=== PATIENT | male | born 1970 | race Caucasian/White ===

== ENCOUNTER → 2016-12-20 | Day surgery (SDC) | payer BC, OTHER ==
[2016-11-27 09:24] VITALS: Ht 175.3 cm; Wt 67.7 kg
[~2016-12-20] VITALS: Ht 175.3 cm; Wt 67.7 kg
[~2016-12-20] MED LIST: IOPAMIDOL INJ 61% 15 ML VIAL ONE; LIDOCAINE HCL 1% MPF 5 ML VIAL ONE; MULT-506 PO; OXYC1TAB3 PO; SODIUM CHLORIDE 0.9% INJ 10 ML VIAL ONE
--- NOTE | 2016-12-20 13:03 | History & Physical Bridge - [place] ---
H&P Re-Evaluation Bridge Note: I have examined the patient, reviewed the History & Physical and in the interval since the performance of the History & Physical I have noted the following changes of clinical significance: No changes noted
--- NOTE | 2016-12-20 13:35 | Discharge Instructions ---
Discharge Instructions Date of Service Dec 20, 2016. Visit Reason for Visit: Lumbar Radiculopathy Discharge Discharge Diagnosis / Problem: low back pain Discharge Goals Goal(s): Decrease discomfort, Improve function Activity Recommendations Activity Limitations: resume your previous activity Anesthesia . Post Anesthesia Instructions: If you have had General Anesthesia or IV Sedation: * Do not drive today. * Resume driving when surgeon permits. * Do not make important decisions or sign legal documents today. * Call surgeon for: 1. Temperature elevations greater than 101 degrees F. 2. Uncontrollable pain. 3. Excessive bleeding. 4. Persistent nausea and vomiting. 5. Medication intolerance (nausea, vomiting or rash). * For nausea and vomiting use only clear liquids such as: tea, soda, bouillon until nausea subsides, then gradually increase diet as tolerated. * If you have any concerns or questions, call your surgeon's office. If physician is unavailable and it is an emergency, call 911 or go to the nearest emergency room. . Diet Recommendations Recommended Home Diet: resume previous diet Procedures Procedures Performed: LUMBAR EPIDURAL STEROID INJECTION Pending Studies Studies pending at discharge: no Medical Emergencies . Who to Call and When: Medical Emergencies: If at any time you feel your situation is an emergency, please call 911 immediately. . Non-Emergent Contact Non-Emergency issues call your: Specialist . . "Provider Documentation" section prepared by Jeremy Gerber. .
[2016-12-20 13:37] VITALS: TEMP 36.7
[2016-12-20 13:43] VITALS: BP 122/77; PULSE 65; O2SAT 100
--- NOTE | 2016-12-20 13:49 | OPERATIVE REPORT ---
DATE OF OPERATION: 12/20/2016 PREOPERATIVE DIAGNOSIS: L4-L5 disc protrusion with left-sided proximal radiculopathy. POSTOPERATIVE DIAGNOSIS: Same. PROCEDURE: Left paramedian L4-L5 interlaminar epidural steroid injection under fluoroscopic guidance. SURGEON: Dr. Jeremy Gerber. INDICATIONS: The patient is a 46-year-old white male who in mid September leaned forward and felt something pop in his low back. He has had pain in the back and proximally into the buttocks area since that time that has gotten a little bit better with physical therapy and exercises and unfortunately did not respond to gabapentin. He presents today for an epidural steroid injection to provide him relief of the residual pain that is persisting into the top of the leg. PHYSICAL EXAMINATION: Pleasant male seated comfortably. He has no issues with forward flexion or extension. He has normal motor and sensory exam with negative seated straight leg raises. CONSENT: Verbal and written consent was obtained from the patient. Risks and benefits were reviewed. Risks include but are not limited to epidural abscess, epidural hematoma, allergic reaction, dural puncture. The patient wishes to proceed. PROCEDURE: The patient was taken back to the special procedures room of the [facility] where he was maintained in a prone position. Backside was cleansed with Betadine x3 and a dry sterile dressing was applied. Fluoroscope was used to identify the L4-L5 interlaminar space. Overlying skin was anesthetized with 4 mL of lidocaine 1% with a 25 gauge 1.5-inch needle. A 22-gauge 3.5 inch spinal needle was then directed down towards the intralaminar space. It was advanced under lateral fluoroscopic guidance and noted to have a loss of resistance of 6.5 cm. Isovue-300 contrast 1 mL was injected in which demonstrated epidural uptake pattern which was confirmed with both AP and lateral views. He then underwent injection after negative aspiration of 4 mL of preservative free sodium chloride, 40 mg of Depo-Medrol. Injection reproduced a transient proximal radicular sensation. DISPOSITION: 1. The patient is taken out into the discharge recovery area where he will be discharged home once discharge criteria have been met. 2. Follow up in the [facility] office in 2-4 weeks. I attest to the content of the Intraoperative Record and any orders documented therein. Any exceptio ns are noted below.
== END | disposition home or self-care (01) ==
LOC: X.SURG 12:20
PROVIDERS: ATTEND Physical Medicine & Rehabilitation
DX: M51.16 Intervertebral disc disorders with radiculopathy, lumbar region (principal)

== ENCOUNTER → 2017-04-03 | Outpatient (CLI) | payer BC ==
[~2017-04-03] MED LIST changes: -IOPAMIDOL INJ 61% 15 ML VIAL ONE; -LIDOCAINE HCL 1% MPF 5 ML VIAL ONE; -SODIUM CHLORIDE 0.9% INJ 10 ML VIAL ONE
--- NOTE | 2017-04-03 08:06 | DIAGNOSTIC IMAGING REPORT ---
LUMBAR SPINE MRI HISTORY: SACRAL PAIN TECHNIQUE: Multiplanar multisequence MRI of the lumbar spine was performed without the use of contrast. COMPARISON: Lumbar spine 11/12/2015. Lumbar spine MRI 01/14/2012. FINDINGS: For the purpose of the report the L5-S1 disc space will be located on axial image 27 of 35. 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 Alignment is intact. No fractures within the lumbar spine. The conus terminates at the L1 level. There is a 13 mm T2 hyperintense, T1 hypointense lesion within the right kidney. This is slightly increased in size. This is incompletely characterize on this noncontrast study but favors a renal cyst. Mild disc space narrowing and disc desiccation at L4-L5, unchanged. The remaining disc spaces are preserved. Stable T2 hyperintense focus within the S2 vertebral body. The stability favors a small notochord rest. No change in the 1.5 x 1.1 cm cyst within the left L1-L2 neural foramen. There is also a stable similar-appearing 8 mm cyst within the left T11-T12 neural foramen. There is also a 6 mm cyst within the right L1-L2 neural foramen, unchanged. L1-L2: No significant central canal or neural foraminal narrowing. L2-L3: No significant central canal or neural foraminal narrowing. L3-L4: No significant central canal or neural foraminal narrowing. L4-L5: Small broad-based posterior disc bulge with a focal central annular tear. No significant central canal or neural foraminal narrowing. L5-S1: No significant central canal or neural foraminal narrowing. IMPRESSION: 1. No significant change compared to the 2011 lumbar spine MRI. 2. 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 3. Small broad-based posterior disc bulge with a focal central annular tear at L4-L5. No central canal or neural foraminal narrowing. Electronically signed by: Anders Gomez M.D. 04/03/2017 8:05 AM Dictated Date/Time: 04/03/2017 7:48 AM
== END | disposition home or self-care (01) ==
LOC: C.MRIBC 07:01
PROVIDERS: ATTEND Physical Medicine & Rehabilitation
DX: G54.8 Other nerve root and plexus disorders (principal); M53.3 Sacrococcygeal disorders, not elsewhere classified

== ENCOUNTER → 2017-08-21 | Outpatient (CLI) | payer BC ==
[~2017-08-21] MED LIST changes: +OXYC-90 PO; -OXYC1TAB3 PO
[2017-08-21 11:19] LABS: ALT/SGPT 44 U/L (12-78); AST/SGOT 32 U/L (15-37); BLOOD UREA NITROGEN 17 mg/dl (7-18); CALCIUM 9.1 mg/dl (8.5-10.1); CARBON DIOXIDE 31 mmol/L (21-32); CREATININE 0.72 mg/dl (0.60-1.40); GLUCOSE 92 mg/dl (70-99); POTASSIUM 3.7 mmol/L (3.5-5.1); SODIUM 137 mmol/L (136-145)
[2017-08-21 11:23] LABS: CHOLESTEROL 156 mg/dl (0-200); LDL CHOLESTEROL CALCULATED 95 mg/dl
== END | disposition home or self-care (01) ==
LOC: C.LAB1850 10:04
PROVIDERS: ATTEND Internal Medicine
DX: Z13.220 Encounter for screening for lipoid disorders (principal); M54.16 Radiculopathy, lumbar region